=== PATIENT | female | born 1970 | race Caucasian/White ===

== ENCOUNTER → 2022-02-18 11:02 | Outpatient (CLI) | payer OTHER, SELFPAY ==
--- NOTE | 2022-02-18 | DI.RAD.S_ITS ---
PROCEDURE: XR KNEE LT 3V INDICATIONS: Bilateral primary osteoarthritis of knee TECHNIQUE: 3 views of the knee were acquired. COMPARISON: [facility], , XR KNEE RT 3V, 02/18/2022, 11:18. FINDINGS: Bones: No fractures or dislocations. No suspicious bony lesions. Mild tricompartmental osteoarthrosis of the left knee. Small marginal osteophytes. Soft tissues: No joint effusion. No suspicious soft tissue calcifications. Vascular calcifications are noted. IMPRESSION: Left knee without acute fracture or malalignment. Mild tricompartment osteoarthrosis of the left knee. Dictated by: Austin Rabago M.D. on 02/18/2022 at 18:20 Approved by: Austin Rabago M.D. on 02/18/2022 at 18:21
--- NOTE | 2022-02-18 | DI.RAD.S_ITS ---
PROCEDURE: XR KNEE RT 3V INDICATIONS: Bilateral primary osteoarthritis of knee TECHNIQUE: 3 views of the knee were acquired. COMPARISON: [facility], CR, XR KNEE LT 3V, 02/18/2022, 11:18. FINDINGS: Bones: No fractures or dislocations. No suspicious bony lesions. There are tricompartmental degenerative changes of the right knee with small marginal osteophytes. Soft tissues: There is a suprapatellar joint effusion. No suspicious soft tissue calcifications. Atherosclerotic calcifications are present. IMPRESSION: Tricompartmental osteoarthrosis of the right knee with associated suprapatellar joint effusion. Dictated by: Austin Rabago M.D. on 02/18/2022 at 18:21 Approved by: Austin Rabago M.D. on 02/18/2022 at 18:22
== END ==
PROVIDERS: PCP Registered Nurse; Referring Provider Acupuncturist; Visit Provider Acupuncturist
DX: M17.0 Bilateral primary osteoarthritis of knee (principal); M25.462 Effusion, left knee
CPT/HCPCS: 73562